=== PATIENT | male | born 1955 | race Caucasian/White ===

== ENCOUNTER 2024-06-11 22:16 | Emergency (ER) | payer OTHER, SELFPAY ==
[2024-06-11 22:17] VITALS: BP 204/118
[2024-06-11 23:11] VITALS: BMI 31.9
--- NOTE | 2024-06-11 23:16 | ED.GENMED ---
History of Present Illness
General
Chief Complaint: Urinary Symptoms
Source: patient
Exam Limitations: none
Time Seen by Provider: 06/11/24 23:07
History of Present Illness
History of Present Illness:
68-year-old male presents complaining of urinary symptoms onset tonight. He notes increased frequency. He denies flank pain or nausea. Notes low-grade fever at home. He has a history of UTIs leading to sepsis. He denies blood in the urine. He
has a history of hypertension. No other complaints at this time
Past History
Past History
ED Past Medical History: None
ED Past Surgical History: None
Phy Exam
Physical Exam
Physical Exam:
General: Well-appearing male no acute distress
HEENT: Normocephalic atraumatic
Heart: Regular rate and rhythm no murmurs
Lungs: Clear no wheeze
Abdomen: No costovertebral angle tenderness
Course
Orders/Labs/Results
Orders:
Orders
06/11/24 23:22
Urinalysis Reflex To Culture Urgent
Date Specimen was Collected: 06/11/24
Time Specimen was Collected: 23:17
Vital Signs
Initial and Last Documented VS:
Initial Vital Signs
Temp Pulse Resp BP Pulse Ox
99.4 F 111 20 204/118 93
06/11/24 22:17 06/11/24 22:17 06/11/24 22:17 06/11/24 22:17 06/11/24 22:17
Last Documented Vital Signs
Temp Pulse Resp BP Pulse Ox
98.0 F 98 18 156/88 94
06/11/24 23:20 06/11/24 23:20 06/12/24 00:09 06/11/24 23:20 06/11/24 23:20
MDM/Problems Addressed
Differential Diagnosis Includes:
Patient notes increased urinary frequency. Question UTI per cystitis. No significant pain to suggest renal colic. Blood pressure slightly elevated out front. Will recheck. Temperature 99.4
UA pending
*Critical Care Note
Total Time (30-74mins, 75-104mins- exclusive of procedures): Not Applicable
Update Note
Update Note:
Urinalysis totally normal. Bladder scan shows 0 in the postvoid fashion. Patient has urinary symptoms without sign of infection or discomfort to suggest renal colic. Recommend watchful waiting. Return here for worsening symptoms. He does have
an appointment set with his urologist.
ED Attending Note
-
Portions of this chart may have been created with voice recognition software.� Occasional wrong word or��sound alike� substitutions may have occurred due to the inherent limitations of voice recognition software.
Discharge Plan
Departure
Patient Disposition: Home (Routine Discharge)
Date of Disposition: 06/12/24
Time of Disposition: 00:56
Patient with high blood pressure during this ER visit?: No
Discharge Problem:
Urinary frequency
Prescriptions:
No Action
amlodipine [Norvasc] 5 MG tablet
5 mg PO DAILY
tamsulosin 0.4 MG capsule
0.4 mg PO DAILY
lisinopril [Zestril] 30 MG tablet
30 mg PO DAILY
tadalafil [Cialis] 20 MG tablet
20 mg PO MONTHLY
metoprolol tartrate 25 MG tablet
25 mg PO DAILY
aspirin [Durlaza] 162.5 MG capsule,extended release 24hr
162.5 mg PO DAILY
Referrals:
Gentry Dsouza MD [Family Provider] -
Activity Restrictions/Additional Instructions:
Please return here for any worsening symptoms otherwise follow-up with your doctor as planned
Interventions
Interventions:
*Risk Screen - Suicide Last Done: 06/11/24 22:16
*General Assessment Last Done: 06/11/24 22:17
*Neglect/Abuse Screening Last Done: 06/11/24 23:11
*ED COVID-19 Vaccine History Last Done: 06/11/24 23:11
ED-Male Genitourinary Assessment Last Done: 06/11/24 23:11
Discharge Date and Time
Print Language: MACEDONIAN
[2024-06-11 23:20] VITALS: BP 156/88
[2024-06-11 23:32] LABS: Urine Albumin Trace (Neg - Trace); Urine Bilirubin Negative (Negative); Urine Character Clear (Clear); Urine Color Yellow; Urine Glucose Negative (Negative); Urine Ketone Negative (Negative); Urine Leukocyte Negative (Negative); Urine Nitrite Negative (Negative); Urine Occult Blood Negative (Negative); Urine Specific Gravity 1.015 (<1.030); Urine Urobilinogen Negative (Neg - 1+)
[2024-06-12 01:06] VITALS: BP 144/87
== END 2024-06-12 01:07 | disposition home or self-care (01) ==
LOC: EMR 22:16
PROVIDERS: Physician Assistant; EMERGENCY PHYSICIAN Emergency Medicine; FAMILY PHYSICIAN Family Medicine
DX: R35.0 Frequency of micturition (principal); I10 Essential (primary) hypertension; Z87.440 Personal history of urinary (tract) infections
CPT/HCPCS: 99282; 81003

== ENCOUNTER → 2024-07-25 13:22 | Outpatient (REF) | payer OTHER, SELFPAY | LOC: HWRAD 13:22 | PROVIDERS: ATTENDING PHYSICIAN Physical Medicine & Rehabilitation; FAMILY PHYSICIAN Family Medicine | DX: M54.16 Radiculopathy, lumbar region (principal) | CPT/HCPCS: 70030 ==